=== PATIENT | male | born 1985 | race African-American/Black ===

== ENCOUNTER 2018-02-08 09:12 | Emergency (ER) | payer SELFPAY ==
[~2018-02-08] VITALS: Ht 182.9 cm; Wt 86.0 kg
[2018-02-08 09:25] VITALS: BP 134/76
== END 2018-02-08 12:43 | disposition home or self-care (01) ==
LOC: ER 09:12
DX: M54.2 Cervicalgia (principal); G89.29 Other chronic pain; M54.5 Low back pain; V89.2XXA Person injured in unspecified motor-vehicle accident, traffic, initial encounter; Y93.89 Activity, other specified; Y92.89 Other specified places as the place of occurrence of the external cause; Y99.8 Other external cause status
CPT/HCPCS: 99282

== ENCOUNTER 2019-04-29 21:09 | Emergency (ER) | payer OTHER ==
[~2019-04-29] VITALS: Ht 182.9 cm; Wt 87.0 kg
[2019-04-30 04:43] VITALS: BP 132/68
== END 2019-04-30 03:45 | disposition home or self-care (01) ==
LOC: ER 21:09
DX: S16.1XXA Strain of muscle, fascia and tendon at neck level, initial encounter (principal); S39.012A Strain of muscle, fascia and tendon of lower back, initial encounter; V49.88XA Car occupant (driver) (passenger) injured in other specified transport accidents, initial encounter; Y93.89 Activity, other specified; Y92.89 Other specified places as the place of occurrence of the external cause; Y99.8 Other external cause status
CPT/HCPCS: 99282